=== PATIENT | male | born 1965 | race Caucasian/White ===

== ENCOUNTER → 2019-12-06 11:48 | Outpatient (CLI) | payer BC, SELFPAY ==
--- NOTE | ~2019-12-06 | XR_ITS ---
EXAMINATION: XR foot LT min 3V, XR foot RT min 3V DATE: 12/06/2019 12:39 INDICATION: Bilateral foot pain TECHNIQUE: 1. Weightbearing dorsoplantar, oblique and lateral views of the left foot were obtained. 2. Weightbearing dorsoplantar, oblique and lateral views of the right foot were obtained. COMPARISON: None. FINDINGS: Mild bilateral hallux valgus with bilateral bunions with minimal hypertrophic change at the medial he ads of the first metatarsal and overlying soft tissue swelling. Otherwise normal alignment at both fe et. No fracture. Mild osteoarthritis at the bilateral first metatarsophalangeal joints and minimal os teoarthritis at several bilateral tarsometatarsal and interphalangeal joints. No cortical erosions or periosteal reaction. Tiny bilateral plantar calcaneal spurs. IMPRESSION: 1. Symmetric pattern of mild bilateral hallux valgus with bunions and mild osteoarthritis at the firs t metatarsophalangeal joints. Reviewed, dictated and finalized at location B. IMPRESSION: 1. Symmetric pattern of mild bilateral hallux valgus with bunions and mild oste oarthritis at the first metatarsophalangeal joints.
== END ==
PROVIDERS: Visit Provider Podiatrist Foot & Ankle Surgery
DX: M79.672 Pain in left foot (principal); M79.671 Pain in right foot; M20.12 Hallux valgus (acquired), left foot; M20.11 Hallux valgus (acquired), right foot; M21.612 Bunion of left foot; M21.611 Bunion of right foot; M19.072 Primary osteoarthritis, left ankle and foot; M19.071 Primary osteoarthritis, right ankle and foot
CPT/HCPCS: 73630